=== PATIENT | male | born 1975 | race Caucasian/White ===

== ENCOUNTER 2016-08-10 20:33 | Emergency (ER) | payer OTHER ==
[2016-08-10 23:09] VITALS: BP 138/80
== END 2016-08-10 23:10 | disposition home or self-care (01) ==
LOC: ED 20:33
DX: S61.210A Laceration without foreign body of right index finger without damage to nail, initial encounter (principal); W25.XXXA Contact with sharp glass, initial encounter; Y93.89 Activity, other specified; Y99.8 Other external cause status; Y92.89 Other specified places as the place of occurrence of the external cause
CPT/HCPCS: 90715; J2001